=== PATIENT | female | born 1945 | race Caucasian/White ===

== ENCOUNTER 2017-02-23 23:04 | Emergency (ER) | payer MEDICARE, OTHER ==
[~2017-02-23] VITALS: Ht 162.6 cm; Wt 80.5 kg
[~2017-02-23 23:04] MED LIST: CLONIDINE; HEADACHE MED; SLEEPING MED
[2017-02-23 23:07] VITALS: Ht 162.6 cm; Wt 80.5 kg
--- NOTE | 2017-02-23 23:33 | ERA ---
ER Documentation Chief Complaint Date/Time DATE: 02/23/17 TIME: 23:33 Chief Complaint Shortness of breath HPI The patient is a 71-year-old female, presenting to the ER because of subjective shortness of breath, subjective fever for 4 days, complains of left upper back pain with breathing today, decreased appetite. She denies neck pain, chest pain with exertion/vomiting/diaphoresis. She denies abdominal pain, vomiting, dysuria, diarrhea, constipation. 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 Medications Home Meds Active Scripts Ibuprofen* (Motrin*) 600 Mg Tab, 600 MG PO Q6, #20 TAB Prov:SAFIA REN MD 02/24/17 Levofloxacin* (Levofloxacin*) 750 Mg Tablet, 750 MG PO DAILY, #9 TAB Prov:SAFIA REN MD 02/24/17 Discontinued Reported Medications [Headache Med] No Conflict Check 05/27/11 [Sleeping Med] No Conflict Check 05/27/11 [Clonidine] No Conflict Check 05/27/11 Allergies Allergies: Coded Allergies: Penicillins (Unverified Allergy, Mild, hives, 02/23/17) PMhx/Soc History of Surgery: Yes (KINDEY, CHOLECYSTECTOMY) Anesthesia Reaction: No Hx Neurological Disorder: No Hx Cardiac Disorders: Yes (HTN) Hx Psychiatric Problems: No Hx Miscellaneous Medical Probl: No Hx Alcohol Use: No Hx Substance Use: No Hx Tobacco Use: No Smoking Status: Never smoker Physical Exam Vitals Vital Signs Date Time Temp Pulse Resp B/P Pulse Ox O2 Delivery O2 Flow Rate FiO2 02/24/17 03:28 87 22 128/90 96 Room Air 02/23/17 23:07 98.9 116 32 142/90 93 Physical Exam Const: No acute distress. Head: Atraumatic. Eyes: Normal Conjunctiva. ENT: Normal External Ears, Nose and Mouth. Neck: Full range of motion. No meningismus. Resp: Clear to auscultation bilaterally. Cardio: Regular Tachycardic Abd: Soft, non distended, normal bowel sounds, non tender. Skin: No petechiae or rashes. Back: No midline or flank tenderness. Ext: No cyanosis, or edema. Neur: Awake and alert. No focal deficit Psych: Normal Mood and Affect. Result Diagram: 02/24/17 0001 02/24/17 0001 Results 24 hrs Laboratory Tests Test 02/24/17 00:01 02/24/17 01:02 02/24/17 01:06 02/24/17 01:17 White Blood Count 7.510^3/ul Red Blood Count 4.3410^6/ul Hemoglobin 13.4g/dl Hematocrit 39.2% Mean Corpuscular Volume 90.3fl Mean Corpuscular Hemoglobin 30.9pg Mean Corpuscular Hemoglobin Concent 34.2g/dl Red Cell Distribution Width 11.6% Platelet Count 43941^3/UL Mean Platelet Volume 11.1fl Neutrophils % 65.0% Lymphocytes % 24.3% Monocytes % 9.3% Eosinophils % 0.7% Basophils % 0.4% Nucleated Red Blood Cells % 0.0/100WBC Neutrophils # 4.910^3/ul Lymphocytes # 1.810^3/ul Monocytes # 0.710^3/ul Eosinophils # 0.110^3/ul Basophils # 0.010^3/ul Nucleated Red Blood Cells # 0.010^3/ul Prothrombin Time 12.9Sec Prothrombin Time Ratio 1.0 INR International Normalized Ratio 0.97 Activated Partial Thromboplast Time 38.8Sec Sodium Level 136mmol/L Potassium Level 3.7mmol/L Chloride Level 104mmol/L Carbon Dioxide Level 25mmol/L Anion Gap 11 Blood Urea Nitrogen 17mg/dl Creatinine 0.93mg/dl Glucose Level 109mg/dl Calcium Level 9.4mg/dl Total Bilirubin 0.4mg/dl Direct Bilirubin 0.00mg/dl Indirect Bilirubin 0.4mg/dl Aspartate Amino Transf (AST/SGOT) 16IU/L Alanine Aminotransferase (ALT/SGPT) 31IU/L Alkaline Phosphatase 53IU/L Troponin I < 0.012ng/ml Total Protein 7.0g/dl Albumin 4.0g/dl Globulin 3.00g/dl Albumin/Globulin Ratio 1.33 Lactic Acid Level 0.8mmol/L Urine Color YELLOW Urine Clarity SLIGHTLY CLOUDY Urine pH 5.0 Urine Specific [place] 1.014 Urine Ketones NEGATIVEmg/dL Urine Nitrite NEGATIVEmg/dL Urine Bilirubin NEGATIVEmg/dL Urine Urobilinogen NEGATIVEmg/dL Urine Leukocyte Esterase 3+Kandice/ul Urine Microscopic RBC 2/HPF Urine Microscopic WBC 34/HPF Urine Squamous Epithelial Cells FEW/HPF Urine Bacteria FEW/HPF Urine Mucus FEW/HPF Urine Hemoglobin NEGATIVEmg/dL Urine Glucose NEGATIVEmg/dL Urine Total Protein NEGATIVEmg/dl Bedside Urine pH (LAB) 6.0 Bedside Urine Protein (LAB) Negative Bedside Urine Glucose (UA) Negative Bedside Urine Ketones (LAB) Negative Bedside Urine Blood Negative Bedside Urine Nitrite (LAB) Negative Bedside Urine Leukocyte Esterase (L 3+ Current Medications Medications (Trade) Dose Ordered Sig/Rachel Route PRN Reason Start Time Stop Time Status Last Admin Dose Admin Levofloxacin (Levaquin) 750 mg ONCE ONCE PO 02/24/17 03:30 02/24/17 03:30 DC 02/24/17 03:27 Procedures/MDM EKG: Read by emergency physician Rate/Rhythm: Normal Sinus Rhythm 91 beats/min QRS, ST, T-waves: No ST elevation, no T inversion Impression: Normal EKG [place] [id number] Radiology Main Line: [phone] DIAGNOSTIC IMAGING REPORT Patient: JONO PORTILLO : 1945 Age: 71 Sex: F MR #: [id number] DOS: 02/24/17 0005 Ordering MD: SAFIA REN MD Location: E/R Room/Bed: PROCEDURE: XR Chest. CLINICAL INDICATION: Possible sepsis. TECHNIQUE: PA and Lateral views of the chest were obtained. COMPARISON: None. FINDINGS: The cardiomediastinal silhouette is within normal limits. Atherosclerotic calcifications in the thoracic aorta. Mild atelectasis at the right lung base. The lungs are otherwise clear. No signs of pleural fluid or pneumothorax are seen. The osseous structures and soft tissues are unremarkable. IMPRESSION: Mild atelectasis at the right lung base, and otherwise, no evidence for active cardiopulmonary disease. RPTAT: [facility] Physician Rosa Elena Date Time Electronically viewed and signed by Physician Rosa Elena on 02/24/2017 01:54 RS/ CC: SAFIA REN MD MEDICAL MAKING DECISION: The patient is a 71-year-old female, presenting with acute cystitis. She was treated with Levaquin p.o. for acute cystitis with good response The differential diagnoses considered include but are not limited to asthma, COPD, pneumonia, pulmonary embolus, pleural effusion, congestive heart failure. Departure Diagnosis: Primary Impression: UTI (urinary tract infection) Condition: Good Comments She was discharged with Levaquin and Motrin I discussed the findings with the patient. I advised the patient to follow-up with the primary physician in about 1-2 days, sooner if needed and return if any concern. SAFIA REN MD Feb 23, 2017 23:33
[2017-02-24 01:05] LABS: BASOPHILS % 0.4 % (0.0-2.0); EOSINOPHILS # 0.1 10^3/ul (0.0-0.5); EOSINOPHILS % 0.7 % (0.0-7.0); HEMATOCRIT 39.2 % (37.0-47.0); HEMOGLOBIN 13.4 g/dl (12.0-16.0); LYMPHOCYTES # 1.8 10^3/ul (0.8-2.9); LYMPHOCYTES % 24.3 % (15.0-51.0); MEAN CORPUSCULAR HEMOGLOBIN 30.9 pg (29.0-33.0); MEAN CORPUSCULAR HGB CONC 34.2 g/dl (32.0-37.0); MEAN CORPUSCULAR VOLUME 90.3 fl (82.0-101.0); MEAN PLATELET VOLUME 11.1 fl (7.4-10.4); MONOCYTE # 0.7 10^3/ul (0.3-0.9); MONOCYTES % 9.3 % (0.0-11.0); NEUTROPHIL # 4.9 10^3/ul (1.6-7.5); PLATELET COUNT 190 10^3/UL (140-415); RED BLOOD COUNT 4.34 10^6/ul (4.20-5.40); RED CELL DISTRIBUTION WIDTH 11.6 % (11.5-14.5); WHITE BLOOD COUNT 7.5 10^3/ul (4.8-10.8)
[2017-02-24 01:08] LABS: INR 0.97; PROTIME 12.9 Sec (12.2-14.2)
[2017-02-24 01:09] LABS: PARTIAL THROMBOPLASTIN TIME 38.8 Sec (25.0-35.0)
[2017-02-24 01:10] LABS: URINE BLOOD (Dip) POC Negative (NEGATIVE)
[2017-02-24 01:10] LABS: ALANINE AMINOTRANSFERASE 31 IU/L (13-69); ALBUMIN/GLOBULIN RATIO 1.33; ALKALINE PHOSPHATASE 53 IU/L (42-121); ANION GAP 11 (8-16); ASPARTATE AMINO TRANSFERASE 16 IU/L (15-46); BILIRUBIN,INDIRECT 0.4 mg/dl (0-1.1); BILIRUBIN,TOTAL 0.4 mg/dl (0.2-1.3); BLOOD UREA NITROGEN 17 mg/dl (7-20); CALCIUM 9.4 mg/dl (8.4-10.2); CARBON DIOXIDE 25 mmol/L (21-31); CHLORIDE 104 mmol/L (97-110); CREATININE 0.93 mg/dl (0.44-1.00); GLUCOSE 109 mg/dl (70-220); POTASSIUM 3.7 mmol/L (3.5-5.1); SODIUM 136 mmol/L (135-144)
[2017-02-24 01:54] LABS: TROPONIN-I < 0.012 ng/ml (0.00-0.12)
--- NOTE | 2017-02-24 01:54 | RADRPT ---
PROCEDURE: XR Chest. CLINICAL INDICATION: Possible sepsis. TECHNIQUE: PA and Lateral views of the chest were obtained. COMPARISON: None. FINDINGS: The cardiomediastinal silhouette is within normal limits. Atherosclerotic calcifications in the thor acic aorta. Mild atelectasis at the right lung base. The lungs are otherwise clear. No signs of pleu ral fluid or pneumothorax are seen. The osseous structures and soft tissues are unremarkable. IMPRESSION: Mild atelectasis at the right lung base, and otherwise, no evidence for active cardiopulmonary disea se. RPTAT: [facility] Physician Rosa Elena Date Time Electronically viewed and signed by Physician Rosa Elena on 02/24/2017 01:54 RS/
[2017-02-24 02:16] LABS: ADD UMIC YES; UR ASCORBIC ACID NEGATIVE (NEGATIVE); UR BACTERIA FEW /HPF (NONE SEEN); UR BILIRUBIN (Dip) NEGATIVE (NEGATIVE); UR BLOOD (Dip) NEGATIVE (NEGATIVE); UR CLARITY SLIGHTLY CLOUDY (CLEAR); UR COLOR YELLOW (YELLOW); UR GLUCOSE (Dip) NEGATIVE (NEGATIVE); UR KETONES (Dip) NEGATIVE (NEGATIVE); UR LEUKOCYTE ESTERASE (Dip) 3+ Leu/ul (NEGATIVE); UR MUCUS FEW /HPF (NONE SEEN); UR NITRITE (Dip) NEGATIVE (NEGATIVE); UR RBC 2 /HPF (0-5); UR SPECIFIC GRAVITY (Dip) 1.014 (1.003-1.030); UR SQUAMOUS EPITHELIAL CELL FEW /HPF (FEW); UR TOTAL PROTEIN (Dip) NEGATIVE (NEGATIVE); UR UROBILINOGEN (Dip) NEGATIVE (NEGATIVE)
[2017-02-24] MEDS ORDERED: LEVO750T8 PO (03:11)
[2017-02-24] MEDS ORDERED: IBUP-1542 PO (03:12)
[2017-02-24 03:28] VITALS: BP 128/90; PULSE 87; RESP 22
[2017-02-24] MEDS ORDERED: LEVOFLOXACIN 750 MG TABLET PO ONE (03:30)
== END 2017-02-24 03:30 | disposition home or self-care (01) ==
LOC: E/R 23:04
DX: N39.0 Urinary tract infection, site not specified (principal); I10 Essential (primary) hypertension
CPT/HCPCS: 36415; 71010; 80053; 81001; 81003; 83605; 84484; 85025; 85610; 85730; 87040; 87086; 93005